=== PATIENT | female | born 1945 | race Caucasian/White ===

== ENCOUNTER 2023-06-12 07:03 | Day surgery (SDC) | payer MEDICARE ==
[~2023-06-12] VITALS: Ht 167.6 cm; Wt 107.0 kg
[~2023-06-12 07:03] MED LIST: ANOR1AER INH; ASPI81TA26 PO; CHLO25TA PO; LEXA1TAB2 PO; LOSA100T46 PO; MAGN400C2 PO; OMEP1CAP73 PO; OXYB10TA23 PO; PHENAZOPYRIDINE 100 MG TAB PO ONE; PROA1AER2 INH; ROSU20TA61 PO; SPIR-10 PO; VITA100093 PO; ceFAZolin SOD 2 GM in IV 1 EA IV ONE
[2023-06-12] MEDS ORDERED: LR 1,000 ML IV SCH (07:15)
[2023-06-12] MEDS ORDERED: LIDOCAINE 2% 100MG/5ML SDV (FOR ANES.) As Ordered ONE (07:55)
[2023-06-12] MEDS ORDERED: propofoL 200 MG/20 ML VIAL As Ordered ONE (07:55)
[2023-06-12] MEDS ORDERED: MIDAZOLAM INJ 2MG/2ML VIAL As Ordered ONE (07:55)
[2023-06-12] MEDS ORDERED: fentaNYL 100 MCG/2 ML INJECTION As Ordered ONE (07:55)
[2023-06-12] MEDS ORDERED: LIDOCAINE 1% MDV 20ML VIAL As Ordered ONE (08:32)
[2023-06-12] MEDS ORDERED: METHYLENE BLUE 0.5% (5MG/ML) 10 ML AMP (PROVAYBLUE) As Ordered ONE (08:32)
[2023-06-12] MEDS ORDERED: LABETALOL 100MG/20ML VIAL As Ordered ONE (09:28)
[2023-06-12] MEDS ORDERED: KETOROLAC 60MG 2ML VIAL As Ordered ONE (09:29)
[2023-06-12] MEDS ORDERED: ONDANSETRON 4MG 2ML VIAL As Ordered ONE (09:30)
[2023-06-12] MEDS ORDERED: ONDANSETRON 4MG 2ML VIAL IV PRN (09:55)
[2023-06-12] MEDS ORDERED: oxyCODONE 5MG TAB PO PRN (09:55)
[2023-06-12] MEDS ORDERED: fentaNYL 100 MCG/2 ML INJECTION IV PRN (09:55)
[2023-06-12] MEDS: HYDROMORPHONE HCL 0.5 MG/ 0.5 ML SYRINGE IV PRN ×2 (10:30→10:35)
[2023-06-12 12:05] VITALS: BP 118/56; TEMP 97.3; O2SAT 96
== END 2023-06-12 12:15 | disposition home or self-care (01) ==
LOC: M SDC 07:03
PROVIDERS: ATTEND Specialist
DX: N39.46 Mixed incontinence (principal); E11.9 Type 2 diabetes mellitus without complications; I10 Essential (primary) hypertension; J43.9 Emphysema, unspecified; E78.00 Pure hypercholesterolemia, unspecified; Z79.899 Other long term (current) drug therapy; Z79.82 Long term (current) use of aspirin; Z88.8 Allergy status to other drugs, medicaments and biological substances; K21.9 Gastro-esophageal reflux disease without esophagitis
CPT/HCPCS: 57288; C1771; J0665; J0690; J1170; J1885; J1920; J2250; J2405; J3010; Q9968

== ENCOUNTER → 2024-01-15 | Outpatient (REF) | payer MEDICARE ==
[~2024-01-15] MED LIST changes: -PHENAZOPYRIDINE 100 MG TAB PO ONE; -ceFAZolin SOD 2 GM in IV 1 EA IV ONE
[2024-01-15 14:14] LABS: APPEARANCE, URINE HAZY (CLEAR); BACTERIA, URINE AUTO 1+ (NEGATIVE); BILIRUBIN, URINE AUTO NEGATIVE (NEGATIVE); BLOOD, URINE BLOOD NEGATIVE (NEGATIVE); COLOR, URINE YELLOW (YELLOW); GLUCOSE, URINE (UA) AUTO NEGATIVE (NEGATIVE); KETONE, URINE AUTO NEGATIVE (NEGATIVE); LEUKOCYTE ESTERASE, URINE AUTO NEGATIVE (NEGATIVE); NITRITE, URINE AUTO NEGATIVE (NEGATIVE); PROTEIN, URINE AUTO NEGATIVE (NEGATIVE); RBC, URINE AUTO 1 /HPF (0-3); SPECIFIC GRAVITY URINE AUTO 1.009 (1.002-1.035); SQUAMOUS EPITHELIAL CELL UR AU 2 /HPF (0-6); UROBILINOGEN, URINE AUTO 0.2 mg/dL (0.0-2.0); WBC, URINE AUTO 4 /HPF (0-3)
== END ==
LOC: M SMT 12:20
PROVIDERS: ATTEND Specialist
DX: N39.46 Mixed incontinence (principal)